=== PATIENT | male | born 1940 | race Caucasian/White ===

== ENCOUNTER → 2018-01-10 | Outpatient (CLI) | payer MEDICARE, MEDICAID | LOC: M RAD 11:26 | DX: I65.23 Occlusion and stenosis of bilateral carotid arteries (principal) | CPT/HCPCS: 93880 ==

== ENCOUNTER → 2019-04-12 | Outpatient (CLI) | payer MEDICARE, MEDICAID ==
--- NOTE | 2019-04-12 11:43 | REP ---
Duplex carotid sonography: History: Bilateral carotid stenosis and occlusion. Comparison sonography January 10, 2018. Sonographic findings: Antegrade flow was observed in the left vertebral artery today. Reversal of flow was observed in the right vertebral artery which implies a right subclavian steal. Exam quality is substantially inhibited bilaterally due to patient body habitus shadowing plaquing and patient movement as before. The proximal right ICA was poorly seen. There is mixed and shadowing plaquing bilaterally. Velocity chart right carotid: PSV EDV Right CCA 43.0 cm/s Right ICA 114.0 17.0 Right ECA 499.0 Right ICA/CCA ratio 2.65. Velocity chart left carotid: PSV EDV Left CCA 23.0 cm/s Left ICA 112.0 17.0 Left ECA 125.0 Left ICA/CCA ratio 4.9. IMPRESSION: Stenotic flow velocities are observed in the ICA on the right. There is considerable shadowing plaquing bilaterally. Image quality is substantially inhibited. 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 Electronically Signed by Jorge Alberto Arias MD 04/12/2019 03:05 P
[2019-04-12 12:54] LABS: ALBUMIN 3.6 GM/DL (3.2-5.2); BILIRUBIN,TOTAL 0.2 MG/DL (0.2-1.0); CALCIUM LEVEL 8.9 MG/DL (8.8-10.2); CREATININE FOR GFR 1.26 MG/DL (0.70-1.30); GLOMERULAR FILTRATION RATE 58.8 (>42); POTASSIUM SERUM 4.3 MEQ/L (3.5-5.1); TOTAL PROTEIN 7.7 GM/DL (6.4-8.2)
== END ==
LOC: M RAD 09:31
PROVIDERS: ATTEND Surgery Vascular Surgery
DX: I65.23 Occlusion and stenosis of bilateral carotid arteries (principal)

== ENCOUNTER → 2019-05-08 | Outpatient (CLI) | payer MEDICARE, MEDICAID ==
[~2019-05-08] MED LIST: ISOVUE-370 76% 100ML VIAL (Q9967) As Ordered ONE
--- NOTE | 2019-05-08 16:09 | REP ---
CT angiography of the neck with IV contrast: History: Occlusion and stenosis bilateral carotid arteries. Comparison sonography April 12, 2019. CT contrast dose: 75 mL of intravenous Isovue 370 is administered. Technique: Helical scanning is acquired. 2 mm axial images are reformatted. Coronal and sagittal MPR images are generated and reviewed. Surface rendered 3-D imaging is generated. CT angiographic findings: There is multifocal vascular calcification. The visualized portions of the thoracic aorta are intact. There are calcifications of the great vessel origins. There is a partially calcific plaque with stenosis of the right subclavian artery approximately 70%. In addition, and more impressive however is calcific plaquing at the origin of the right vertebral artery from the subclavian artery distal to this. A tiny right vertebral artery is seen arising from this calcific eccentric right subclavian artery plaque. A collateral artery arises from the subclavian artery and ascends in the right neck in the anterior prevertebral soft tissues to join the vertebral at the second cervical vertebral level. The proximal right vertebral artery is of normal size. There is calcific plaquing of the left subclavian artery as well and the left vertebral artery does not appear to be patent below the level of C3. The distal left vertebral artery is small. In general, the basilar artery and posterior circulation vessels are small. The common carotid artery show minimal calcification, but no high-grade stenosis. There is a large calcified plaque at the origin of the internal carotid arteries bilaterally producing significant stenosis. This is more prominent on the left than the right, but high-grade stenosis is suspected bilaterally. The distal internal carotid artery on the right is more tortuous than that on the left. Moderate vascular calcification is seen in the carotid siphons bilaterally. Calcific plaquing interferes with visualization of the stenosis in the internal carotid arteries bilaterally. 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 This reconstitutes and is patent at the level of C3. There is a high-grade stenosis at the origin of a diminutive right cervical vertebral artery. There are collaterals on the right which are patent. Relatively small basilar artery and posterior circulation arteries are seen intracranially. There are large calcific plaques at the origin of the internal carotid arteries bilaterally producing significant bilateral proximal ICA stenosis. The right cervical ICA is quite tortuous. There is moderate atherosclerotic plaquing of the internal carotid arteries bilaterally in the carotid siphons. Electronically Signed by Jorge Alberto Arias MD 05/08/2019 04:58 P
== END ==
LOC: M RAD 10:46
PROVIDERS: ATTEND Surgery Vascular Surgery
DX: I65.23 Occlusion and stenosis of bilateral carotid arteries (principal)
CPT/HCPCS: 70498; Q9967